=== PATIENT | male | born 1995 | race Caucasian/White ===

== ENCOUNTER 2019-01-20 21:05 | Emergency (ER) | payer MEDICAID ==
--- NOTE | 2019-01-20 22:02 | ED Physician Chart ---
ED Chief Complaint/HPI - Patient Information Date Seen:: 01/20/19 Time Seen:: 21:17 Chief Complaint:: laceration of the right index finger History of Present Illness:: this is a 24 yo male who states that he was playing with a knife before noon today and sustained a laceration to his right index finger. he is concerned about the cut, however the bleeding has stopped and it is no longer hurting. Allergies:: Allergies Allergy/AdvReac Type Severity Reaction Status Date / Time No Known Allergies Allergy Verified 01/20/19 21:15 Vitals:: Vital Signs - 8 hr 01/20/19 21:10 Temp 99.0 F HR 83 RR 18 BP 144/91 O2 Sat % 97 Historian:: Patient Review:: Nurse's Note Reviewed ED Review of Systems - Review of Systems General/Constitutional: No fever, No chills, No weight loss, No weakness, No diaphoresis, No edema, No loss of appetite Skin: No skin lesions, No rash, No bruising Head: No headache, No light-headedness Eyes: No loss of vision, No pain, No diplopia ENT: No earache, No nasal drainage, No sore throat, No tinnitus Neck: No neck pain, No swelling, No thyromegaly, No stiffness, No mass noted Cardio Vascular: No chest pain, No palpitations, No PND, No orthopnea, No edema Pulmonary: No SOB, No cough, No sputum, No wheezing GI: No nausea, No vomiting, No diarrhea, No pain, No melena, No hematochezia, No constipation, No hematemesis G/U: No dysuria, No frequency, No hematuria Musculoskeletal: No bone or joint pain, No back pain, No muscle pain, Other ( right index finger laceration.) Endocrine: No polyuria, No polydipsia Psychiatric: No prior psych history, No depression, No anxiety, No suicidal ideation Hematopoietic: No bruising, No lymphadenopathy Allergic/Immuno: No urticaria, No angioedema Neurological: No syncope, No focal symptoms, No weakness, No paresthesia, No headache, No seizure, No dizziness, No confusion, No vertigo ED Past Medical History - Past Medical History Obtainable: Yes Past Medical History: No significant medical hx Family History: None Social History: Non Smoker, No Alcohol, No Drug Use, Employed Surgical History: None Psychiatricy History: None Medication: Reviewed ED Physical Exam - Physical Examination General/Constitutional: Awake, Well-developed, well-nourished, Alert, No distress, GCS 15, Non-toxic appearing, Ambulatory Head: Atraumatic Eyes: Lids, conjuctiva normal, PERRL, EOMI Skin: Nl inspection, No rash, No skin lesions, No ecchymosis, Well hydrated, No lymphadenopathy ENMT: External ears, nose nl, Nasal exam nl, Lips, teeth, gums nl Neck: Nontender, Full ROM w/o pain, No JVD, No nuchal rigidity, No bruit, No mass, No stridor Respiratory: Nl effort/Exclusion, Clear to Auscultation, No Wheeze/Rhonchi/Rales Cardio Vascular: RRR, No murmur, gallop, rubs, NL S1 S2 GI: No tenderness/rebounding/guarding, No organomegaly, No hernia, Normal BS's, Nondistended, No mass/bruits, No McBurney tenderness : No CVA tenderness Extremities: No tenderness or effusion, Full ROM, normal strength in all extremities, No edema, Normal digits & nails (there is an old laceration of the right index finger open but no bleeding noted with no sign of infection.) Neuro/Psych: Alert/oriented, DTR's symmetric, Normal sensory exam, Normal motor strength, Judgement/insight normal, Mood normal, Normal gait, No focal deficits Misc: Normal back, No paraspinal tenderness ED Assessment - Assessment General Assessment: old laceration of the right index finger ED Septic Shock - . Is Septic Shock (SBP<90, OR Lactate>4 mmol\L) present?: No - <6hrs of presentation: Vital Signs: Vital Signs - 8 hr 01/20/19 21:10 Temp 99.0 F HR 83 RR 18 BP 144/91 O2 Sat % 97 ED Reassessment (Disposition) - Reassessment Reassessment Condition:: Improved - Diagnosis Diagnosis:: old laceration of the right index finger. - Aftercare/Follow up Instructions Aftercare/Follow-Up Instructions:: Counseled pt regarding lab results/diagnosis & need follow up, Refer to Discharge Instructions, Counseled pt & family regarding lab results/diagnosis & need follow up Notes:: follow up with your pmd in two days and take the meds as prescribed. Medication Prescribed:: [id number] - Patient Disposition Discharge/Transfer:: Home Condition at Disposition:: Improved
== END 2019-01-20 23:00 | disposition home or self-care (01) ==
LOC: ER 21:05
DX: S61.210A Laceration without foreign body of right index finger without damage to nail, initial encounter (principal); W26.0XXA Contact with knife, initial encounter; Y93.89 Activity, other specified; Y92.89 Other specified places as the place of occurrence of the external cause; Y99.8 Other external cause status
CPT/HCPCS: 99283; 96372; 90715; J0696; Z7502

== ENCOUNTER 2019-01-23 15:18 | Emergency (ER) | payer MEDICAID ==
--- NOTE | 2019-01-23 15:59 | ED Physician Chart ---
ED Chief Complaint/HPI - Patient Information Date Seen:: 01/23/19 Time Seen:: 15:40 Chief Complaint:: laceration right index finger History of Present Illness:: 3 days ago at noon the patient was "messing around" with a knife and accidentally cut his right index finger. He came here about 9:00. Physician on -call decided laceration was too old to suture and Dermabonded it, gave the patient a tetanus booster and prescribed a Z-pack Allergies:: Allergies Allergy/AdvReac Type Severity Reaction Status Date / Time No Known Allergies Allergy Verified 01/20/19 21:15 Historian:: Patient, Family Member ED Review of Systems - Review of Systems General/Constitutional: No fever, No chills Skin: Skin lesions Head: No headache Eyes: No loss of vision ENT: No earache Neck: No neck pain, No swelling Cardio Vascular: No chest pain, No palpitations Pulmonary: No SOB GI: No nausea, No vomiting, No diarrhea G/U: No dysuria Musculoskeletal: No bone or joint pain Endocrine: No polyuria Psychiatric: No prior psych history Hematopoietic: No bruising Neurological: No syncope ED Past Medical History - Past Medical History Past Medical History: No significant medical hx Family History: Diabetes Melitus, HTN Social History: Smoker Employment:: Smokes 1 pack per week Surgical History: None Medication: Reviewed Family Medical History - Family Member Mother History Unknown: Yes ED Physical Exam - Physical Examination General/Constitutional: Awake Head: Atraumatic Eyes: Lids, conjuctiva normal Other Skin comments:: 1 1/2 centimeter crusted curved laceration radial side of middle segment right index finger about 1 cm proximal to the DIP joint; anesthesia of the radial side of the right index finger distal to the PIP joint ENMT: External ears, nose nl Neck: No nuchal rigidity Respiratory: Nl effort/Exclusion, Clear to Auscultation Cardio Vascular: RRR GI: No tenderness/rebounding/guarding : No CVA tenderness Other Extremities comments:: See under skin Neuro/Psych: No focal deficits ED Assessment - Assessment General Assessment: Patient has cut the digital nerve on the radial side of his right index finger. Patient was told to follow-up at a large medical facility like [facility], [facility] or [facility] where he can be evaluated by a hand surgeon who can decide whether it is appropriate to try to reanastomose the two ends of the digital nerve. A bandage with a Band-Aid and 2 inch Jhonny was applied. Patient to be given Keflex 500 mg in the emergency department and a prescription for same to take 1 4 times a day for a week. ED Septic Shock - . Is Septic Shock (SBP<90, OR Lactate>4 mmol\\L) present?: No ED Reassessment (Disposition) - Reassessment Reassessment Condition:: Unchanged - Diagnosis Diagnosis:: Digital nerve laceration right index finger - Aftercare/Follow up Instructions Aftercare/Follow-Up Instructions:: Refer to Discharge Instructions - Patient Disposition Discharge/Transfer:: Home Condition at Disposition:: Stable, Unchanged
[2019-01-24] MEDS ORDERED: Lidocaine 2% Gel 5 mL TP ONE (00:29)
== END 2019-01-23 16:10 | disposition home or self-care (01) ==
LOC: ER 15:18
DX: S64.490A Injury of digital nerve of right index finger, initial encounter (principal); F17.210 Nicotine dependence, cigarettes, uncomplicated; W26.0XXA Contact with knife, initial encounter; Y93.89 Activity, other specified; Y92.89 Other specified places as the place of occurrence of the external cause; Y99.8 Other external cause status
CPT/HCPCS: Z7502; Z7610

== ENCOUNTER 2019-01-23 22:04 | Emergency (ER) | payer MEDICAID ==
--- NOTE | 2019-01-23 23:31 | ED Physician Chart ---
ED Chief Complaint/HPI - Patient Information Date Seen:: 01/23/19 Time Seen:: 23:05 Chief Complaint:: pain chest, left thumb, left knee, left ankle History of Present Illness:: About 2130 patient returned about 20 feet down a slope. He complains of multiple abrasions, pain base of left thumb, chest, left knee and left ankle Allergies:: Allergies Allergy/AdvReac Type Severity Reaction Status Date / Time No Known Allergies Allergy Verified 01/20/19 21:15 Vitals:: Vital Signs - 8 hr 01/23/19 22:04 Temp 97.5 F HR 115 RR 20 BP 137/90 O2 Sat % 99 Historian:: Patient Review:: Nurse's Note Reviewed ED Review of Systems - Review of Systems General/Constitutional: No fever, No chills Skin: Skin lesions Head: No headache Eyes: No loss of vision ENT: No earache Neck: No neck pain, No swelling Cardio Vascular: No chest pain, No palpitations Pulmonary: No SOB GI: No nausea, No vomiting, No diarrhea G/U: No dysuria Musculoskeletal: Bone or joint pain Endocrine: No polyuria Psychiatric: No prior psych history, No depression, No anxiety, No suicidal ideation Hematopoietic: No bruising Allergic/Immuno: No urticaria Neurological: No syncope ED Past Medical History - Past Medical History Past Medical History: No significant medical hx Family History: Diabetes Melitus, HTN Social History: Smoker, Alcohol Surgical History: other (his teeth pulled) Psychiatricy History: None Family Medical History - Family Member Mother History Unknown: Yes ED Physical Exam - Physical Examination General/Constitutional: Awake, Well-developed, well-nourished Other Gen/Cons comments:: Mild distress Other Head comments:: Multiple scalp abrasions Eyes: Lids, conjuctiva normal, PERRL Other Skin comments:: Multiple abrasions on back torso extremities ENMT: TM canals nl, Nasal exam nl, Lips, teeth, gums nl, Oropharynx nl, Tonsils nl Other ENMT comments:: Deep abrasion right earlobe Neck: No nuchal rigidity Respiratory: Nl effort/Exclusion, Clear to Auscultation, No Wheeze/Rhonchi/Rales Other Respiratory comments:: Sternal tenderness Cardio Vascular: RRR, No murmur, gallop, rubs GI: No tenderness/rebounding/guarding, No organomegaly : No CVA tenderness Other Extremities comments:: Left knee: Patellar tenderness; left ankle: Lateral tenderness. Left thumb: Tenderness of the MCP joint ED Labs/Radiology/EKG Results - Radiology Results Results: X-rays negative ED Assessment - Procedures Procedures:: On the dirty abrasions 2% Viscous Xylocaine was placed before cleansing. Abrasions cleansed with 4 x 4's saturated with normal saline ED Septic Shock - . Is Septic Shock (SBP<90, OR Lactate>4 mmol\L) present?: No - <6hrs of presentation: Vital Signs: Vital Signs - 8 hr 01/23/19 22:04 Temp 97.5 F HR 115 RR 20 BP 137/90 O2 Sat % 99 ED Reassessment (Disposition) - Reassessment Reassessment Condition:: Improved - Diagnosis Diagnosis:: Multiple abrasions; contusion base of left thumb; contusion left knee; sprain left ankle - Aftercare/Follow up Instructions Aftercare/Follow-Up Instructions:: Refer to Discharge Instructions - Patient Disposition Discharge/Transfer:: Home Condition at Disposition:: Stable, Improved
[2019-01-23] MEDS ORDERED: Acetaminophen 500 MG TAB PO ONE (23:43)
[2019-01-23] MEDS ORDERED: Acetaminophen 500 MG TAB ONE (23:46)
--- NOTE | 2019-01-24 08:05 | Diagnostic Imaging Report ---
CHEST X-RAY: 2 views INDICATION: Trauma COMPARISON: None FINDINGS: There is no focal consolidation or pleural effusions The heart is normal in size. Osseous structures are intact. There may have been old trauma to the left distal clavicle. No evidence of pneumothorax. IMPRESSION: No focal consolidation identified. No evidence of pneumothorax. There may have been old trauma to the left distal clavicle.
--- NOTE | 2019-01-24 08:34 | Diagnostic Imaging Report ---
Right knee (2 views) HISTORY: Pain, trauma No acute bony abnormalities. No fractures. Joint spaces appear normal. IMPRESSION: No acute abnormalities
--- NOTE | 2019-01-24 08:35 | Diagnostic Imaging Report ---
Right ankle (2 views) HISTORY: Pain, trauma No acute bony abnormalities. No fractures. Soft tissue swelling noted over the lateral aspect of the ankle. IMPRESSION: 1. Soft tissue swelling 2. No definite acute bony amenities. In the presence of recent trauma and persistent symptoms, a repeat radiograph in 5-7 days may be helpful for detection of a subtle or occult fracture.
--- NOTE | 2019-01-24 08:36 | Diagnostic Imaging Report ---
Left hand (2 views) HISTORY: Pain, trauma No acute bony abnormalities. No fractures. IMPRESSION: 1. No acute bony abnormalities In the presence of recent trauma and persistent symptoms, a repeat radiograph in 5-7 days may be helpful for detection of a subtle or occult fracture.
== END 2019-01-24 00:03 | disposition home or self-care (01) ==
LOC: ER 22:04
DX: S93.402A Sprain of unspecified ligament of left ankle, initial encounter (principal); S80.02XA Contusion of left knee, initial encounter; S60.012A Contusion of left thumb without damage to nail, initial encounter; F17.200 Nicotine dependence, unspecified, uncomplicated; X58.XXXA Exposure to other specified factors, initial encounter; Y93.89 Activity, other specified; Y92.89 Other specified places as the place of occurrence of the external cause; Y99.8 Other external cause status
CPT/HCPCS: 71046-TC; 73120-TC-LT; 73560-TC-RT; 73600-TC-RT; A4217; X7704; Z7610